=== PATIENT | female | born 1995 | race African-American/Black ===

== ENCOUNTER 2020-11-15 13:37 | Emergency (ER) | payer OTHER ==
[2020-11-15 13:56] VITALS: BP 124/88; PULSE 96; TEMP 98; BMI 25.0
[2020-11-15 16:39] LABS: EPI CELLS 28 /uL (0-25.1); HYALINE CASTS 2 /uL (0-3.1); PH,URINE 5.5 (5.0-8.0); URINE APPEARANCE CLEAR; URINE BACTERIA 1549 /uL (0-1359); URINE BILIRUBIN NEGATIVE (NEGATIVE); URINE COLOR YELLOW; URINE GLUCOSE (UA) NEGATIVE (NEGATIVE); URINE KETONE NEGATIVE (NEGATIVE); URINE LEUK ESTERASE NEGATIVE (NEGATIVE); URINE NITRITE NEGATIVE (NEGATIVE); URINE PROTEIN 1+ (NEGATIVE); URINE RBC 6 /uL (0-23.9); URINE UROBILINOGEN 0.2 mg/dL (0.2-1.0); URINE WBC 12 /uL (0-25.8)
[2020-11-15 17:12] LABS: METHADONE, UR NEGATIVE ng/ml (CUTOFF=300); URINE AMPHETAMINES NEGATIVE ng/ml (CUTOFF=500)
[2020-11-15 17:14] LABS: PHENCYCLIDINE,URINE NEGATIVE ng/ml (CUTOFF=25)
[2020-11-15 17:17] LABS: URINE BARBITURATES NEGATIVE ng/ml (CUTOFF=200)
[2020-11-15 17:23] LABS: COCAINE, UR POSITIVE ng/ml (CUTOFF=300); OPIATES, URI POSITIVE ng/ml (CUTOFF=300); URINE BENZODIAZEPINES POSITIVE ng/ml (CUTOFF=200)
== END 2020-11-15 20:00 | disposition left against medical advice (07) ==
LOC: JER 13:37
DX: S00.93XA Contusion of unspecified part of head, initial encounter (principal); S10.93XA Contusion of unspecified part of neck, initial encounter
CPT/HCPCS: 70450-TC; 72125-TC; 80307; 81003; 84703; 87086; 99285-25